=== PATIENT | male | born 1970 | race African-American/Black ===

== ENCOUNTER 2025-05-24 06:45 | Inpatient (IN) | payer OTHER ==
[2025-05-24] VITALS (7 sets, daily range): BP systolic 116–137; BP diastolic 92–106; PULSE 123–126; RESP 22–29; TEMP 36.7–37.5; O2SAT 94–98
[~2025-05-24] VITALS: Ht 182.9 cm; Wt 100.7 kg
[2025-05-24 07:29] LABS: BASOPHILS % 0.6 % (0.0-2.0); EOSINOPHILS % 2.0 % (0.0-5.0); HEMATOCRIT. 46.8 % (42.0-52.0); HEMOGLOBIN. 15.4 g/dL (14.0-18.0); LYMPHOCYTES % 27.8 % (20.0-50.0); MEAN PLATELET VOLUME 7.0 fl (7.4-10.4); MONOCYTES % 5.2 % (2.0-8.0); NEUTROPHILS % 64.4 % (40.0-76.0); PLATELET 185 x1000/uL (130-400); RED BLOOD CELL COUNT 5.30 mill/uL (4.7-6.1); RED CELL DISTRIBUTION WIDTH 14.5 % (11.6-14.6)
[2025-05-24 07:44] LABS: CREATININE 1.4 mg/dL (0.6-1.3)
[2025-05-24 07:45] LABS: UREA NITROGEN BLOOD 13 mg/dL (9-23)
[2025-05-24 07:46] LABS: ASPARTATE AMINOTRANSFERASE 21 IU/L (<34)
[2025-05-24 07:47] LABS: BILIRUBIN DIRECT 0.2 mg/dL (<=3.0); BILIRUBIN TOTAL 0.6 mg/dL (0.1-1.0); PROTEIN TOTAL 7.2 g/dL (6.0-8.3)
[2025-05-24 08:08] LABS: TROPONIN I HIGH SENSITIVITY 170 ng/L (3.0-53)
[2025-05-24] MEDS: HYDRALAZINE 20MG/ML VIAL IV ONE (09:13)
[2025-05-24] MEDS: ENOXAPARIN 100MG/ML SYR SUBCUT ONE (09:14)
[2025-05-24] MEDS: IOHEXOL-350 100 ML BOTTLE ONE (09:48)
[2025-05-24] MEDS ORDERED: ACETAMINOPHEN 325MG TABLET PO PRN ×2 (10:30)
[2025-05-24] MEDS ORDERED: DOCUSATE SODIUM 100MG CAPSULE PO PRN (10:30)
[2025-05-24] MEDS ORDERED: HEPARIN 5000 UNITS/ML VIAL IV SCH (10:30)
[2025-05-24] MEDS ORDERED: IPRATROPIUM/ALBUTEROL 0.5-3(2.5)MG/3ML NEB HHN PRN (10:30)
[2025-05-24] MEDS ORDERED: GUAIFENESIN 200MG/10ML SUGAR FREE UDC PO PRN (10:30)
[2025-05-24] MEDS ORDERED: ONDANSETRON HCL 4MG/2ML INJ IV PRN (10:30)
[2025-05-24] MEDS: PANTOPRAZOLE SODIUM 40 MG/VIAL IV SCH (10:57)
[2025-05-24] MEDS: AMLODIPINE 5MG TABLET PO NR (11:00)
[2025-05-24 11:52] LABS: INR 1.1
[2025-05-24 13:21] LABS: CLARITY URINE CLEAR (CLEAR); COLOR URINE YELLOW (YELLOW); GLUCOSE URINE NEGATIVE (NEGATIVE); KETONES URINE NEGATIVE (NEGATIVE); LEUKOCYTE ESTERASE URINE NEGATIVE (NEGATIVE); NITRITE URINE NEGATIVE (NEGATIVE); OCCULT BLOOD URINE NEGATIVE (NEGATIVE); PH URINE 6.5 (4.5-8.0); PROTEIN URINE NEGATIVE (NEGATIVE); SPECIFIC GRAVITY URINE 1.039 (1.005-1.030); UROBILINOGEN URINE 0.2 E.U./dL (0.2-1.0)
[2025-05-24 13:33] LABS: *AMPHETAMINES SCREEN URINE NEGATIVE (NEGATIVE); *BARBITURATES SCREEN URINE NEGATIVE (NEGATIVE); *BENZODIAZEPINES SCREEN URINE NEGATIVE (NEGATIVE)
[2025-05-24 13:34] LABS: *COCAINE SCREEN URINE NEGATIVE (NEGATIVE); CANNABINOID URINE SCREEN PRESUMPTIVE POSITIVE (NEGATIVE); ECSTASY MDMA SCREEN URINE NEGATIVE (NEGATIVE); METHADONE URINE SCREEN NEGATIVE (NEGATIVE); OPIATES URINE SCREEN NEGATIVE (NEGATIVE); PHENCYCLIDINE URINE SCREEN NEGATIVE (NEGATIVE)
[2025-05-24 19:10] LABS: CREATINE KINASE MB FRACTION 7.0 ng/mL (0.5-3.6)
[2025-05-24 19:30] LABS: TROPONIN I HIGH SENSITIVITY 2057.0 ng/L (3.0-53)
[2025-05-24] MEDS: AMLODIPINE 5MG TABLET PO SCH (21:43)
[2025-05-24] MEDS: HEPARIN 25,000 UNITS PREMIX 250 ML IV SCH (21:51)
[2025-05-24 22:46] LABS: TROPONIN I HIGH SENSITIVITY 2086 ng/L (3.0-53)
[2025-05-25] VITALS (12 sets, daily range): BP systolic 113–137; BP diastolic 83–106; PULSE 100–116; RESP 16–23; TEMP 36.6–37.7; O2SAT 92–100
[2025-05-25] MEDS ORDERED: HEPARIN 5000 UNITS/ML VIAL IV PRN (03:00)
[2025-05-25] MEDS: HEPARIN 5000 UNITS/ML VIAL IV PRN (04:29)
[2025-05-25 10:33] LABS: BASOPHILS % 0.4 % (0.0-2.0); EOSINOPHILS % 0.6 % (0.0-5.0); HEMATOCRIT. 46.8 % (42.0-52.0); HEMOGLOBIN. 15.8 g/dL (14.0-18.0); LYMPHOCYTES % 28.3 % (20.0-50.0); MEAN PLATELET VOLUME 7.4 fl (7.4-10.4); MONOCYTES % 3.0 % (2.0-8.0); NEUTROPHILS % 67.7 % (40.0-76.0); PLATELET 201 x1000/uL (130-400); RED BLOOD CELL COUNT 5.33 mill/uL (4.7-6.1); RED CELL DISTRIBUTION WIDTH 14.6 % (11.6-14.6)
[2025-05-25 10:44] LABS: CREATININE 1.4 mg/dL (0.6-1.3); TRIGLYCERIDE 111 mg/dL (0-150); UREA NITROGEN BLOOD 12 mg/dL (9-23)
[2025-05-25 10:45] LABS: LDL CHOLESTEROL 97 mg/dL (5-100)
[2025-05-25 11:06] LABS: TROPONIN I HIGH SENSITIVITY 1084 ng/L (3.0-53)
[2025-05-25] MEDS: SODIUM CHLORIDE 0.9% 1,000 ML IV ONE (14:00)
[2025-05-25] MEDS: ASPIRIN 81MG EC TABLET PO SCH (15:01)
[2025-05-26] VITALS (8 sets, daily range): BP systolic 117–134; BP diastolic 62–101; PULSE 68–108; RESP 16–21; TEMP 36.3–36.8; O2SAT 94–95
[2025-05-26] MEDS: ATORVASTATIN CALCIUM 40MG TABLET PO SCH (00:29)
[2025-05-26 07:07] LABS: BASOPHILS % 0.6 % (0.0-2.0); EOSINOPHILS % 2.0 % (0.0-5.0); HEMATOCRIT. 42.4 % (42.0-52.0); HEMOGLOBIN. 14.3 g/dL (14.0-18.0); LYMPHOCYTES % 29.3 % (20.0-50.0); MEAN PLATELET VOLUME 7.4 fl (7.4-10.4); MONOCYTES % 7.0 % (2.0-8.0); NEUTROPHILS % 61.1 % (40.0-76.0); PLATELET 186 x1000/uL (130-400); RED BLOOD CELL COUNT 4.86 mill/uL (4.7-6.1); RED CELL DISTRIBUTION WIDTH 14.7 % (11.6-14.6)
[2025-05-26 07:23] LABS: CREATININE 1.3 mg/dL (0.6-1.3); UREA NITROGEN BLOOD 11 mg/dL (9-23)
[2025-05-26 07:39] LABS: TROPONIN I HIGH SENSITIVITY 282 ng/L (3.0-53)
[2025-05-26] MEDS ORDERED: APIX5TAB PO (12:14)
[2025-05-26] MEDS ORDERED: AMLO5TAB88 PO (12:14)
[2025-05-26] MEDS ORDERED: PANT40TA51 PO (12:14)
[2025-05-26] MEDS ORDERED: LIP40 PO (12:14)
[2025-05-26] MEDS ORDERED: ASPI-1406 PO (12:14)
[2025-05-26] MEDS: APIXABAN 5 MG TABLET PO SCH (13:03)
[2025-06-02] MEDS ORDERED: APIXABAN 5 MG TABLET PO SCH (09:00)
== END 2025-05-26 14:45 | disposition home or self-care (01) | DRG 280 ==
LOC: ER 06:45 → 5EST 09:01 → EDBEDREQTM 09:04 → EDBEDREQ 09:04 → EDBEDREQSVC 11:34 → ENRESERV 13:04
PROVIDERS: ADMIT Hospitalist; ATTEND Hospitalist
DX: I82.432 Acute embolism and thrombosis of left popliteal vein (principal); I26.99 Other pulmonary embolism without acute cor pulmonale; I21.A1 Myocardial infarction type 2; J96.01 Acute respiratory failure with hypoxia; N17.9 Acute kidney failure, unspecified; Z20.822 Contact with and (suspected) exposure to COVID-19; T50.8X5A Adverse effect of diagnostic agents, initial encounter; S39.012A Strain of muscle, fascia and tendon of lower back, initial encounter; I10 Essential (primary) hypertension; E66.9 Obesity, unspecified; X58.XXXA Exposure to other specified factors, initial encounter; Y93.89 Activity, other specified; Y92.89 Other specified places as the place of occurrence of the external cause; Y99.8 Other external cause status; Z68.30 Body mass index [BMI] 30.0-30.9, adult; Z79.82 Long term (current) use of aspirin; Z87.891 Personal history of nicotine dependence
CPT/HCPCS: 36415; 71045; 71275; 80048; 80061; 80076; 80305; 81003; 82550; 82553; 83735; 84484; 85025; 85379; 87426; 93005; 93306; 93970; 99291; J0360; J1644; J1650; J2470; Q9967